=== PATIENT | male | born 1985 | race Hispanic/Latino ===

== ENCOUNTER 2016-11-02 07:43 | Emergency (ER) | payer OTHER ==
[2016-11-02] MEDS ORDERED: IBUPROFEN 800 MG TAB As Ordered ONE (07:59)
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
--- NOTE | 2016-11-03 10:37 | REP ---
Five view left knee series 11/02/2016 Indication: Trauma Findings: There is a bipartite patella with unfused ossification center in the superolateral aspect of the patella. This is consistent with normal anatomic variant. There is no acute fracture, subluxation, or dislocation. There is no suprapatellar effusion. Impression: no acute fracture or dislocation Bipartite patella, normal anatomic variant Signed by Gabby Martinez MD 11/03/2016 10:28 A
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
== END 2016-11-02 10:20 | disposition home or self-care (01) ==
LOC: M ED 07:43
DX: S80.02XA Contusion of left knee, initial encounter (principal); V43.52XA Car driver injured in collision with other type car in traffic accident, initial encounter; Y92.410 Unspecified street and highway as the place of occurrence of the external cause; Y93.89 Activity, other specified; Y99.8 Other external cause status; Z72.0 Tobacco use